=== PATIENT | male | born 1975 | race Caucasian/White ===

== ENCOUNTER → 2017-10-03 | Outpatient (CLI) | payer BC ==
[~2017-10-03] MED LIST: BUTA1CAP39 PO
--- NOTE | 2017-10-03 10:57 | Diagnostic Imaging Report ---
INDICATION: Neck pain. Sciatica. COMPARISON: MR dated 02/18/2010. FINDINGS: Evaluation of the static alignment demonstrates straightening of the normal lordotic curvature of the cervical spine with slight reversal of the normal lordotic curvature epicentered at the C5 level. The cervical spine is seen down to the C7-T1 level on the lateral view. There is no significant herberth or retrolisthesis. There is no evidence of jumped facets. The open-mouth view demonstrates normal C1-C2 alignment. The vertebral body heights are maintained. There is no evidence of acute fracture. There are degenerative changes at the C5-C6 level with intervertebral disc height loss and anterior and posterior endplate osteophyte formations. The surrounding soft tissue structures are unremarkable. The included portions of the lung apices are clear. IMPRESSION: 1. No radiographic evidence of acute fracture or dislocation of the cervical spine. 2. Degenerative changes at the C5-C6 level. 3. The report was called to [place] the office of Judith Gomes APRN, by [email or web address]@10:56 AM. Dictated by: Dictated on workstation # [id number]
== END ==
LOC: RAD 09:07
PROVIDERS: ATTEND Nurse Practitioner Family
DX: M47.22 Other spondylosis with radiculopathy, cervical region (principal)
CPT/HCPCS: 72040

== ENCOUNTER → 2017-10-23 | Outpatient (CLI) | payer BC ==
--- NOTE | 2017-10-23 09:42 | Diagnostic Imaging Report ---
PROCEDURE: MR imaging cervical spine without contrast. TECHNIQUE: Multiplanar, multisequence MR imaging of the cervical spine was performed without contrast. Indication: Remote injury 10 years ago following lifting. Recent progression of those symptoms with left-sided neck pain, left shoulder and arm pain and tingling. Exam compared with previous dated 02/18/2010. The cervical spinal cord itself maintains a stable and normal volume, morphology and signal intensity. Cervical body heights are maintained and their alignment is anatomic and the marrow signal intensity was unremarkable. No paravertebral mass, hemorrhage or fluid collection. There is no evidence for ligamentous injury. The craniocervical relationship, the C1-C2 and C2-C3 levels is stable and normal. C3-4: There is slight disc desiccation and minimally progressed from prior. No substantial stature loss. There is eccentric mild diffuse bulging posterior left laterally however this does not result in a substantial degree of foraminal narrowing. Spinal canal widely patent. Right neural foramen patent. C4-5: Left-sided osteophyte disc material and uncovertebral joint spurring and hypertrophy mildly increased with a mild degree of left foraminal narrowing. Spinal canal and right neural foramen widely patent. C5-6: Progressive spondylosis with loss of disc stature, disc desiccation, endplate osteophytes, uncovertebral joint spurring and hypertrophy as well as some facet arthrosis have increased. There is now mild canal stenosis with moderate left and mild to moderate right neural foraminal stenoses increased. C6-7: Osteophyte disc material at this level shows some progression anteriorly and posteriorly. The posterior disease is greater on the left with mild to moderate left and mild right neural foraminal stenosis and mild canal stenosis. C7-T1 level and disc stable and normal. IMPRESSION: Increased bony hypertrophy, uncovertebral joint spurring and endplate osteophytes with increased disc bulging mid to lower levels resulting in progressive canal and predominately left-sided foraminal stenoses listed level by level above. There is normal alignment and there is a stable normal appearance of the cervical and visualized upper thoracic spinal cord. Dictated by: Dictated on workstation # [id number]
== END ==
LOC: RAD 08:08
PROVIDERS: ATTEND Family Medicine
DX: M48.02 Spinal stenosis, cervical region (principal); M50.21 Other cervical disc displacement, high cervical region; M99.71 Connective tissue and disc stenosis of intervertebral foramina of cervical region; M47.812 Spondylosis without myelopathy or radiculopathy, cervical region
CPT/HCPCS: 72141